=== PATIENT | female | born 2000 | race Hispanic/Latino ===

== ENCOUNTER 2023-09-18 20:21 | Emergency (ER) | payer SELFPAY ==
[2023-09-18 21:36] LABS: SARS-CoV-2 NAA Rapid Test DETECTED (NotDetected)
== END 2023-09-18 22:24 | disposition home or self-care (01) ==
LOC: CSHERS 20:21
DX: U07.1 COVID-19 (principal)
CPT/HCPCS: 99283

== ENCOUNTER 2023-09-28 10:22 | Emergency (ER) | payer SELFPAY ==
[2023-09-28 11:56] LABS: SARS-CoV-2 NAA Rapid Test Not Detected (NotDetected)
== END 2023-09-28 12:20 | disposition home or self-care (01) ==
LOC: CSHERS 10:22
DX: Z01.84 Encounter for antibody response examination (principal); Z20.822 Contact with and (suspected) exposure to COVID-19
CPT/HCPCS: 99283

== ENCOUNTER 2023-11-07 20:36 | Emergency (ER) | payer SELFPAY ==
[2023-11-07] MEDS ORDERED: Acetaminophen 500 MG TAB ONE (21:26)
[2023-11-07 21:56] LABS: Bilirubin Neg (Negative); Blood, Urine 10 (Negative); Clarity Clear (Clear); Glucose, Urine (Dipstick) Normal (Negative); Ketone, Urine Negative (Negative); Leukocyte 25 (Negative); Nitrite Negative (Negative); Protein, Urine (Dipstick) 15 mg/dl (Neg-Trace)
[2023-11-07 22:13] LABS: Pregnancy Test - Urine (BHCG) Negative (Negative); Pregu Control Background? CLEAR/WHITE (CLR/WHITE); Pregu Control Bar Appear? YES (CONTROL BAR)
[2023-11-07 22:14] LABS: SARS-CoV-2 NAA Rapid Test Not Detected (NotDetected)
[2023-11-07 22:44] LABS: RBC/HPF 0-3 HPF (0-3)
[2023-11-07 22:45] LABS: Bacteria/HPF 2+ HPF (None Seen); CAUTI Indications for Culture Pelvic or flank pain; Urine Culture Reflex No No
[2023-11-07] MEDS ORDERED: Ondansetron ODT 4 MG TAB ONE (23:01)
== END 2023-11-07 23:06 | disposition home or self-care (01) ==
LOC: CSHERS 20:36
DX: N94.6 Dysmenorrhea, unspecified (principal)
CPT/HCPCS: 81001; 81025; 99284; Q0162

== ENCOUNTER 2024-01-04 10:28 | Emergency (ER) | payer SELFPAY ==
[2024-01-04 12:36] LABS: SARS-CoV-2 NAA Rapid Test Not Detected (NotDetected)
== END 2024-01-04 12:42 | disposition home or self-care (01) ==
LOC: CSHERS 10:28
DX: J02.9 Acute pharyngitis, unspecified (principal)
CPT/HCPCS: 87081; 87430; 99283

== ENCOUNTER 2024-08-21 12:48 | Emergency (ER) | payer SELFPAY ==
[2024-08-21 13:28] LABS: #Basophils 0.02 10x3/uL (0.0-0.2); #Eosinphils 0.16 10x3/uL (0.0-0.5); #Monocytes 0.29 10x3/uL (0.0-1.1); #Neutrophils 2.26 10x3/uL (1.5-8.4); %Basophils 0.4 % (0.0-2.0); %Eosinophils 3.3 % (0.0-6.0); %Lymphocytes 43.5 % (18.0-47.0); %Neutrophils 46.8 % (40.0-75.0); Hematocrit 29.5 % (34.9-44.5); Hemoglobin 8.7 g/dL (12.0-15.5); Mean Corpuscular HGB CONC 29.5 g/dL (32.0-36.0); Mean Corpuscular Hemoglobin 20.6 pg (27.0-33.0); Mean Corpuscular Volume 69.9 fL (81.6-98.3); Mean Platelet Volume 10.2 fL (7.4-10.4); Platelet Count 250 10x3/uL (150-450); RBC Distribution Width 19.9 % (11.5-14.5); Red Blood Cell (RBC) Count 4.22 10x6/uL (3.90-5.03); White Blood Cell (WBC) Count 4.8 10x3/uL (3.5-10.5)
[2024-08-21 13:42] LABS: BHCG - Serum Negative (NEGATIVE); Pregs Control Background? CLEAR/WHITE (CLR/WHITE); Pregs Control Bar Appear? YES (CONTROL BAR)
[2024-08-21 13:46] LABS: Anisocytosis SLIGHT = 6-15 cells (100X) (0-5/hpf)
[2024-08-21 13:47] LABS: Hypochromia SLIGHT = 6-15 cells (100X) (0-5/hpf); Microcytosis SLIGHT = 6-15 cells (100X) (0-5/hpf); Ovalocytes MODERATE= 6-15 cells (100X) (0-1/hpf); Platelet Adequacy Comment Appears Adequate
[2024-08-21] MEDS ORDERED: Aspirin Chewable 81 MG TAB ONE (13:48)
[2024-08-21 13:50] LABS: ALT (SGPT) 10 U/L (8-55); AST (SGOT) 20 U/L (5-34); Albumin 4.6 g/dL (3.5-5.0); Alkaline Phosphatase 42 U/L (40-110); Anion Gap 16 mmol/L (10-20); BUN (Urea Nitrogen) 16 mg/dL (7.0-18.7); Bilirubin, Total 0.4 mg/dL (0.2-1.2); Calc. Creatinine Clearance 0 mL/min (70-130); Calcium 9.5 mg/dL (7.8-10.44); Carbon Dioxide 20 mmol/L (22-29); Chloride 103 mmol/L (98-107); Estimated GFR 128; Globulin 3.3 g/dL (2.4-3.5); Glucose 89 mg/dL (70-105); Lipase 29 U/L (8-78); Protein, Total 7.9 g/dL (6.0-8.3); Sodium 135 mmol/L (136-145)
[2024-08-21 13:52] LABS: Troponin I 0.011 ng/mL (< 0.028)
[2024-08-21] MEDS ORDERED: Mag-Al 1200 mg/1200 mg/30 ML UDCUP PO SCH (15:30)
== END 2024-08-21 15:35 | disposition home or self-care (01) ==
LOC: CSHERS 12:48
DX: D50.9 Iron deficiency anemia, unspecified (principal); K29.70 Gastritis, unspecified, without bleeding
CPT/HCPCS: 71045; 80053; 83690; 84484; 84703; 85025; 85379; 93005

== ENCOUNTER 2024-11-25 11:12 | Emergency (ER) | payer SELFPAY ==
[2024-11-25 12:16] LABS: #Eosinophils 0.28 10x3/uL (0.0-0.5); #Monocytes 0.27 10x3/uL (0.0-1.1); %Basophils 0.5 % (0.0-2.0); %Eosinophils 7.1 % (0.0-6.0); %Lymphocytes 35.3 % (18.0-47.0); %Monocytes 6.8 % (0.0-10.0); %Neutrophils 50.3 % (40.0-75.0); Hematocrit 28.5 % (34.9-44.5); Hemoglobin 7.9 g/dL (12.0-15.5); Mean Corpuscular HGB CONC 27.7 g/dL (32.0-36.0); Mean Corpuscular Hemoglobin 19.4 pg (27.0-33.0); Mean Corpuscular Volume 69.9 fL (81.6-98.3); Mean Platelet Volume 10.5 fL (7.4-10.4); Platelet Count 232 10x3/uL (150-450); RBC Distribution Width 17.2 % (11.5-14.5); Red Blood Cell (RBC) Count 4.08 10x6/uL (3.90-5.03)
[2024-11-25 12:21] LABS: #Basophils 0.02 10x3/uL (0.0-0.2)
[2024-11-25 12:24] LABS: BHCG - Serum Negative (NEGATIVE); Pregs Control Background? CLEAR/WHITE (CLR/WHITE); Pregs Control Bar Appear? YES (CONTROL BAR)
[2024-11-25 12:30] LABS: ALT (SGPT) 15 U/L (8-55); AST (SGOT) 20 U/L (5-34); Albumin 4.3 g/dL (3.5-5.0); Alkaline Phosphatase 42 U/L (40-110); Anion Gap 11 mmol/L (10-20); BUN (Urea Nitrogen) 13 mg/dL (7.0-18.7); Bilirubin, Total 0.4 mg/dL (0.2-1.2); Calc. Creatinine Clearance 0 mL/min (70-130); Carbon Dioxide 22 mmol/L (22-29); Chloride 106 mmol/L (98-107); Estimated GFR 128; Globulin 3.6 g/dL (2.4-3.5); Glucose 86 mg/dL (70-105); Potassium 3.8 mmol/L (3.5-5.1); Protein, Total 7.9 g/dL (6.0-8.3); Sodium 135 mmol/L (136-145)
[2024-11-25 12:50] LABS: Anisocytosis SLIGHT = 6-15 cells (100X) (0-5/hpf); Hypochromia SLIGHT = 6-15 cells (100X) (0-5/hpf); Microcytosis SLIGHT = 6-15 cells (100X) (0-5/hpf); Ovalocytes MODERATE= 6-15 cells (100X) (0-1/hpf); Platelet Adequacy Comment Appears Adequate; Poikilocytosis SLIGHT = 6-15 cells (100X) (0-5/hpf)
== END 2024-11-25 13:18 | disposition home or self-care (01) ==
LOC: CSHERS 11:12
DX: D64.9 Anemia, unspecified (principal); R19.7 Diarrhea, unspecified
CPT/HCPCS: 80053; 84443; 84703; 85025; 99284

== ENCOUNTER 2025-08-18 12:58 | Emergency (ER) | payer SELFPAY ==
[2025-08-18 13:45] LABS: #Basophils Less than 0.03 10x3/uL (0.0-0.2); #Eosinophils 0.37 10x3/uL (0.0-0.5); #Monocytes 0.29 10x3/uL (0.0-1.1); #Neutrophils 3.02 10x3/uL (1.5-8.4); %Basophils 0.4 % (0.0-2.0); %Eosinophils 6.9 % (0.0-6.0); %Lymphocytes 31.1 % (18.0-47.0); %Monocytes 5.4 % (0.0-10.0); %Neutrophils 55.8 % (40.0-75.0); Hematocrit 30.2 % (34.9-44.5); Hemoglobin 8.9 g/dL (12.0-15.5); Mean Corpuscular Hemoglobin 22.3 pg (27.0-33.0); Mean Corpuscular Volume 75.5 fL (81.6-98.3); Platelet Count 287 10x3/uL (150-450); Red Blood Cell (RBC) Count 4.00 10x6/uL (3.90-5.03); White Blood Cell (WBC) Count 5.40 10x3/uL (3.5-10.5)
[2025-08-18 14:56] LABS: ALT (SGPT) 10 U/L (Less than 34); AST (SGOT) 18 U/L (11-34); Albumin 4.5 g/dL (3.1-4.5); Alkaline Phosphatase 42 U/L (40-110); Anion Gap 10 mmol/L (10-20); BUN (Urea Nitrogen) 13 mg/dL (7.0-18.7); Bilirubin, Total 0.2 mg/dL (0.3-1.2); Calc. Creatinine Clearance 0 mL/min (70-130); Calcium 8.9 mg/dL (7.8-10.44); Carbon Dioxide 27 mmol/L (22-29); Chloride 105 mmol/L (98-107); Globulin 3.5 g/dL (2.4-3.5); Glucose 95 mg/dL (70-105); Potassium 3.5 mmol/L (3.5-5.1); Sodium 138 mmol/L (136-145)
[2025-08-18 14:57] LABS: Glucose, Urine (Dipstick) Normal (Negative); Leukocyte Negative (Negative); Protein, Urine (Dipstick) 30 mg/dl (Neg-Trace); Specific Gravity, Urine 1.020 (1.005-1.030)
[2025-08-18 15:35] LABS: CAUTI Indications for Culture Pelvic or flank pain; RBC/HPF Greater than 50 HPF (0-3); WBC/HPF 0-3 HPF (0-3)
[2025-08-18 15:36] LABS: Bacteria/HPF None Seen HPF (None Seen); Mucous/LPF 2+ LPF (<2+); Urine Culture Reflex No No
== END 2025-08-18 17:01 | disposition home or self-care (01) ==
LOC: CSHERS 12:58
DX: O36.80X0 Pregnancy with inconclusive fetal viability, not applicable or unspecified (principal); O20.9 Hemorrhage in early pregnancy, unspecified; Z3A.08 8 weeks gestation of pregnancy
CPT/HCPCS: 36415; 76856; 80053; 81001; 84702; 85025; 86850; 86900; 86901

== ENCOUNTER 2025-08-20 10:32 | Emergency (ER) | payer SELFPAY ==
[2025-08-20] MEDS ORDERED: PREFILLED IM SCH (13:15)
[2025-08-20] MEDS ORDERED: METHOTREXATE SODIUM IM SCH (13:15)
== END 2025-08-20 14:43 | disposition home or self-care (01) ==
LOC: CSHERS 10:32
DX: O00.90 Unspecified ectopic pregnancy without intrauterine pregnancy (principal)
CPT/HCPCS: 36415; 84702; 96372; 99284; J9250

== ENCOUNTER 2025-08-23 12:27 | Emergency (ER) | payer SELFPAY ==
[2025-08-23 13:07] LABS: #Basophils Less than 0.03 10x3/uL (0.0-0.2); #Eosinophils 0.22 10x3/uL (0.0-0.5); #Monocytes 0.17 10x3/uL (0.0-1.1); #Neutrophils 2.22 10x3/uL (1.5-8.4); %Basophils 0.5 % (0.0-2.0); %Eosinophils 5.4 % (0.0-6.0); %Lymphocytes 35.8 % (18.0-47.0); %Monocytes 4.1 % (0.0-10.0); %Neutrophils 54.0 % (40.0-75.0); Hematocrit 29.1 % (34.9-44.5); Hemoglobin 8.6 g/dL (12.0-15.5); Mean Corpuscular Hemoglobin 22.1 pg (27.0-33.0); Mean Corpuscular Volume 74.6 fL (81.6-98.3); Platelet Count 216 10x3/uL (150-450); Red Blood Cell (RBC) Count 3.90 10x6/uL (3.90-5.03); White Blood Cell (WBC) Count 4.11 10x3/uL (3.5-10.5)
[2025-08-23 13:15] LABS: ALT (SGPT) 13 U/L (Less than 34); AST (SGOT) 23 U/L (11-34); Albumin 4.1 g/dL (3.1-4.5); Alkaline Phosphatase 36 U/L (40-110); Anion Gap 10 mmol/L (10-20); BUN (Urea Nitrogen) 12 mg/dL (7.0-18.7); Bilirubin, Total 0.4 mg/dL (0.3-1.2); Calc. Creatinine Clearance 0 mL/min (70-130); Calcium 8.8 mg/dL (7.8-10.44); Carbon Dioxide 27 mmol/L (22-29); Chloride 106 mmol/L (98-107); Globulin 3.1 g/dL (2.4-3.5); Glucose 87 mg/dL (70-105); Potassium 3.7 mmol/L (3.5-5.1); Sodium 139 mmol/L (136-145)
[2025-08-23 13:15] LABS: Glucose, Urine (Dipstick) Normal (Negative); Leukocyte 25 (Negative); Protein, Urine (Dipstick) 30 mg/dl (Neg-Trace); Specific Gravity, Urine 1.010 (1.005-1.030)
[2025-08-23 13:23] LABS: Anisocytosis SLIGHT = 6-15 cells (100X) (0-5/hpf); Microcytosis SLIGHT = 6-15 cells (100X) (0-5/hpf); Ovalocytes SLIGHT = 2-5 cells (100X) (0-1/hpf); Polychromasia SLIGHT = 2-3 cells (100X) (0-2/hpf)
[2025-08-23 13:24] LABS: Platelet Adequacy Comment Appears Adequate
[2025-08-23 13:37] LABS: Bacteria/HPF 1+ HPF (None Seen); CAUTI Indications for Culture Pelvic or flank pain; RBC/HPF Greater than 50 HPF (0-3); WBC/HPF 0-3 HPF (0-3)
[2025-08-23 13:38] LABS: Urine Culture Reflex No No
== END 2025-08-23 14:01 | disposition home or self-care (01) ==
LOC: CSHERS 12:27
DX: O00.90 Unspecified ectopic pregnancy without intrauterine pregnancy (principal); O99.011 Anemia complicating pregnancy, first trimester; O23.41 Unspecified infection of urinary tract in pregnancy, first trimester; N39.0 Urinary tract infection, site not specified; Z3A.00 Weeks of gestation of pregnancy not specified
CPT/HCPCS: 36415; 80053; 81001; 84702; 85025; 99283